=== PATIENT | female | born 2000 | race Caucasian/White ===

== ENCOUNTER 2023-07-06 12:02 | Emergency (ER) | payer OTHER ==
[~2023-07-06] VITALS: Ht 157.5 cm; Wt 64.9 kg
[2023-07-06] MEDS ORDERED: DULO1CAP6 PO (12:13)
[2023-07-06] MEDS ORDERED: DULO1CAP5 PO (12:13)
[2023-07-06] MEDS ORDERED: MONT10TA97 PO (12:15)
[2023-07-06] MEDS ORDERED: ATOM60CA2 PO (12:15)
[2023-07-06] MEDS ORDERED: PROPARACAINE 0.5% OPHTH SOL 15ML OS ONE (13:30)
[2023-07-06] MEDS ORDERED: FLUORESCEIN OPHTH 1MG STRIP OS ONE (13:30)
[2023-07-06] MEDS ORDERED: PRED20TA PO (13:52)
[2023-07-06 14:04] VITALS: BP 118/72; TEMP 98; O2SAT 99
== END 2023-07-06 14:06 | disposition home or self-care (01) ==
LOC: M ED 12:02
DX: H10.32 Unspecified acute conjunctivitis, left eye (principal); F12.10 Cannabis abuse, uncomplicated; F10.10 Alcohol abuse, uncomplicated; Z88.5 Allergy status to narcotic agent; Z79.52 Long term (current) use of systemic steroids; Z79.899 Other long term (current) drug therapy